=== PATIENT | male | born 1995 | race Caucasian/White ===

== ENCOUNTER 2017-08-03 04:29 | Emergency (ER) | payer OTHER ==
[~2017-08-03] VITALS: Ht 165.1 cm; Wt 83.4 kg
[~2017-08-03 04:29] MED LIST: CLEOCIN300 MG OR; NO HOME MEDS; ULTRAM50 M1 PO; ZITHROMAX250 MG PO
[2017-08-03 05:15] LABS: URINE BILIRUBIN - DIPSTICK NEGATIVE (NEGATIVE); URINE BLOOD DIPSTICK MODERATE (NEGATIVE); URINE COLOR YELLOW; URINE GLUCOSE - DIPSTICK NEGATIVE (NEGATIVE); URINE KETONE NEGATIVE (NEGATIVE); URINE LEUK ESTERASE NEGATIVE (NEGATIVE); URINE NITRITE - DIPSTICK NEGATIVE (Negative); URINE PROTEIN - DIPSTICK NEGATIVE (NEG-TRACE); URINE SPECIFIC GRAVITY >=1.030; URINE UROBILINOGEN - DIPSTICK 0.2 E.U./dL (0.2)
[2017-08-03 05:17] LABS: HEMATOCRIT 43.3 % (39.0-50.0); HEMOGLOBIN 15.1 g/dl (14.0-18.0); IMMATURE GRANULOCYTES 0.6 % (0.0-1.0); MEAN CELL VOLUME 83.1 fL CALC (80.0-100.0); MEAN CORPUSCULAR HGB CONC 34.9 g/L CALC (32.0-36.0); NEUT# 3.9 thou/uL (1.82-7.42); RED BLOOD COUNT 5.21 mill/uL (4.70-6.10); RED CELL DISTRI WIDTH 11.5 % (11.5-15.5)
[2017-08-03 05:19] LABS: URINE CLARITY CLEAR
[2017-08-03 05:34] LABS: URINE BACTERIA FEW hpf; URINE HYALINE CAST FEW lpf (NONE-RARE); URINE SQUAMOUS EPITHELIAL CELL FEW EPI/hpf (0-FEW); URINE WBC 0-2 WBC/hpf (0-5)
[2017-08-03 05:44] LABS: ALBUMIN 4.6 g/dL (3.2-5.0); ALKALINE PHOSPHATASE 117 u/l (38-126); AMYLASE 58 u/l (30-110); ANION GAP 18 (6-22 (CALC)); BILIRUBIN, TOTAL 0.5 mg/dL (0.0-1.4); BUN 15 mg/dL (9-20); BUN/CREATININE RATIO 15 (12-20 (CALC)); CARBON DIOXIDE 23 mmol/l (22-30); CHLORIDE 108 mmol/l (95-108); GFR > 60 ML/MIN (>=60 (CALC)); GFR FOR AFR.AMER. > 60 ML/MIN (>=60 (CALC)); LIPASE 165 u/l (23-300); POTASSIUM 3.8 mmol/l (3.5-5.1); SGOT/AST 27 u/l (17-59); SGPT/ALT 44 u/l (21-72); SODIUM 145 mmol/l (137-146); TOTAL PROTEIN 7.2 g/dL (6.3-8.2)
[2017-08-03 05:55] LABS: MYOGLOBIN 13 ng/mL (0 - 121)
[2017-08-03 07:26] VITALS: BP 118/75
== END 2017-08-03 07:19 | disposition left against medical advice (07) | DRG 392 ==
LOC: ED 04:29
PROVIDERS: Emergency Medicine
DX: R10.11 Right upper quadrant pain (principal); R10.31 Right lower quadrant pain; R11.0 Nausea; Z91.19 Patient's noncompliance with other medical treatment and regimen
CPT/HCPCS: Q9967

== ENCOUNTER 2017-08-03 09:37 | Emergency (ER) | payer OTHER ==
[~2017-08-03] VITALS: Ht 165.1 cm; Wt 83.4 kg
[2017-08-03 10:47] VITALS: BP 129/89
== END 2017-08-03 11:18 | disposition home or self-care (01) | DRG 392 ==
LOC: ED 09:37
DX: R10.31 Right lower quadrant pain (principal)